=== PATIENT | male | born 1955 | race Two or more races ===

== ENCOUNTER 2022-12-04 09:18 | Outpatient (CLI) | payer MEDICARE, MEDICAID ==
[2022-12-04 09:54] LABS: BASOPHILS % (AUTO) 0.5 % (0-1); EOSINOPHILS # (AUTO) 0.5 X10'3 (0-0.9); EOSINOPHILS % (AUTO) 5.7 % (0-6); HEMATOCRIT 44.9 % (42.0-52.0); LYMPHOCYTES # (AUTO) 1.6 X10'3 (1.1-4.8); MEAN CORPUSCULAR HEMOGLOBIN 31.1 PG (27.0-31.0); MEAN CORPUSCULAR HGB CONC 33.4 g/dL (33.0-36.5); MEAN CORPUSCULAR VOLUME 93.3 FL (78-98); MEAN PLATELET VOLUME 7.8 FL (7.4-10.4); MONOCYTES # (AUTO) 1.1 X10'3 (0-0.9); MONOCYTES % (AUTO) 12.5 % (2-12); NEUTROPHILS # (AUTO) 5.3 X10'3 (1.8-7.7); NEUTROPHILS % (AUTO) 62.3 % (42-75); PLATELET COUNT 261 X10'3 (140-440); RED BLOOD COUNT 4.82 X10'6 (4.70-6.10); RED CELL DISTRIBUTION WIDTH 13.7 % (11.5-14.5); WHITE BLOOD COUNT 8.5 X10'3 (4.5-11.0)
[2022-12-04 10:03] LABS: APTT 29 SECONDS (22-32)
[2022-12-04 10:05] LABS: ALBUMIN 3.9 G/DL (3.4-5.0); ANION GAP 5 (8-16); BLOOD UREA NITROGEN 23 MG/DL (7-18); BUN/CREATININE RATIO 22.1 (10.0-20.0); CHLORIDE 104 MMOL/L (99-107); CHOL/HDL RATIO 1.9 (0.00-4.99); CHOLESTEROL 116 MG/DL (0-200); CREATININE 1.04 MG/DL (0.60-1.10); GLUCOSE 105 MG/DL (70-104); HDL CHOLESTEROL 60 MG/DL (35-60); LDL CHOLESTEROL 46 MG/DL (50-100); POTASSIUM 4.5 MMOL/L (3.5-5.1); SODIUM 140 MMOL/L (135-145); TOTAL CARBON DIOXIDE 31.4 MMOL/L (24-32); TRIGLYCERIDES 48 MG/DL (20-135); eGFR 71 ML/MIN
== END 2022-12-04 23:59 | disposition home or self-care (01) ==
LOC: LAB 09:18 → EDSTATUS 12-08 15:30
PROVIDERS: ATTEND Student in an Organized Health Care Education/Training Program
DX: Z01.812 Encounter for preprocedural laboratory examination (principal); I50.30 Unspecified diastolic (congestive) heart failure; I11.0 Hypertensive heart disease with heart failure; E78.5 Hyperlipidemia, unspecified
CPT/HCPCS: 36415; 80048; 80061; 85025; 85610; 85730

== ENCOUNTER 2023-02-09 10:51 | Day surgery (SDC) | payer MEDICARE, MEDICAID ==
[2023-02-05 08:28] LABS: BASOPHILS % (AUTO) 0.5 % (0-1); EOSINOPHILS # (AUTO) 0.2 X10'3 (0-0.9); EOSINOPHILS % (AUTO) 3.4 % (0-6); HEMOGLOBIN 15.1 g/dl (14.0-17.9); LYMPHOCYTES # (AUTO) 2.4 X10'3 (1.1-4.8); LYMPHOCYTES % (AUTO) 35.5 % (21-51); MEAN CORPUSCULAR HEMOGLOBIN 31.3 PG (27.0-31.0); MEAN CORPUSCULAR HGB CONC 33.6 g/dL (33.0-36.5); MEAN CORPUSCULAR VOLUME 93.2 FL (78-98); MEAN PLATELET VOLUME 8.1 FL (7.4-10.4); MONOCYTES # (AUTO) 0.7 X10'3 (0-0.9); MONOCYTES % (AUTO) 9.8 % (2-12); NEUTROPHILS # (AUTO) 3.5 X10'3 (1.8-7.7); NEUTROPHILS % (AUTO) 50.8 % (42-75); PLATELET COUNT 213 X10'3 (140-440); RED BLOOD COUNT 4.83 X10'6 (4.70-6.10); WHITE BLOOD COUNT 6.8 X10'3 (4.5-11.0)
[2023-02-05 08:34] LABS: ALBUMIN 3.9 G/DL (3.4-5.0); ANION GAP 6 (8-16); BLOOD UREA NITROGEN 22 MG/DL (7-18); BUN/CREATININE RATIO 20.8 (10.0-20.0); CHLORIDE 103 MMOL/L (99-107); CREATININE 1.06 MG/DL (0.60-1.10); GLUCOSE 126 MG/DL (70-104); POTASSIUM 4.6 MMOL/L (3.5-5.1); SODIUM 139 MMOL/L (135-145); TOTAL CARBON DIOXIDE 29.7 MMOL/L (24-32); eGFR 69 ML/MIN
[2023-02-05 08:37] LABS: APTT 27 SECONDS (22-32)
[2023-02-09] VITALS (7 sets, daily range): BP systolic 91–119; BP diastolic 56–64; PULSE 62–69; RESP 14–16; TEMP 97.4; O2SAT 93–96
[~2023-02-09] VITALS: Ht 182.9 cm; Wt 85.8 kg
[2023-02-09] MEDS ORDERED: LORazepam 0.5 MG tablet PO PRN (11:10)
[2023-02-09] MEDS ORDERED: normal saline 1,000 ML IV SCH (11:10)
[2023-02-09] MEDS ORDERED: diphenhydrAMINE 25mg capsule PO PRN (11:10)
[2023-02-09] MEDS ORDERED: DULA0.75 SQ (11:21)
[2023-02-09] MEDS ORDERED: HUM7525 SQ ×2 (11:21)
[2023-02-09] MEDS ORDERED: METF-438 PO (11:21)
[2023-02-09] MEDS ORDERED: ATOR-2 PO (11:21)
[2023-02-09] MEDS ORDERED: METO-384 PO (11:21)
[2023-02-09] MEDS ORDERED: SPIR25TA5 PO (11:21)
[2023-02-09] MEDS ORDERED: FLO0.4C PO (11:21)
[2023-02-09] MEDS ORDERED: SACU1TAB7 PO (11:21)
[2023-02-09] MEDS ORDERED: BENZ200C53 PO (11:21)
[2023-02-09] MEDS ORDERED: FINA5TAB11 PO (11:21)
[2023-02-09] MEDS ORDERED: FURO20TA4 PO (11:21)
[2023-02-09] MEDS ORDERED: EMPA25TA PO (11:21)
[2023-02-09] MEDS ORDERED: verapamil 2.5 mg/ml inj IV ONE (11:53)
[2023-02-09] MEDS ORDERED: midazolam 1 mg/ML 2ml injection ONE ×2 (11:53→13:17)
[2023-02-09] MEDS ORDERED: LIDOcaine 1% (10mg/ml) 2ml vial ONE (11:53)
[2023-02-09] MEDS ORDERED: nitroGLYCERIN-Tridil 50MG/D5W 250 ML IV ONE (11:53)
[2023-02-09] MEDS ORDERED: iohexol 350MG/ML 100ml bottle IV ONE (11:54)
[2023-02-09] MEDS ORDERED: heparin 1,000unit/ml 10ml vial 10 ML ONE (11:54)
[2023-02-09] MEDS ORDERED: fentaNYL/PF 50MCG/1 ML 2ML syringe ONE (11:54)
[2023-02-09] MEDS ORDERED: HYDROcodone/acetaminophen 10/325mg tab PO PRN (14:15)
[2023-02-09] MEDS ORDERED: HYDROcodone/acetaminophen 5mg/325mg tablet PO PRN (14:15)
[2023-02-09 14:40] LABS: ISTAT HGB ART 14.3 g/dl (14.0-17.9); ISTAT Hct ART 42 %PCV (42-52); ISTAT O2 SATURATION ARTERIAL 92 % (95-98); ISTAT SOURCE ART
[2023-02-09 14:43] LABS: ISTAT Hct MIX 45 %PCV (42-52); ISTAT O2 SATURATION MIX VENOUS 62 % (60-80); ISTAT SOURCE VEN
== END 2023-02-09 15:50 | disposition home or self-care (01) ==
LOC: SSTAY O 10:51
PROVIDERS: ATTEND Student in an Organized Health Care Education/Training Program
DX: I11.0 Hypertensive heart disease with heart failure (principal); I50.22 Chronic systolic (congestive) heart failure; I25.10 Atherosclerotic heart disease of native coronary artery without angina pectoris; E11.9 Type 2 diabetes mellitus without complications; E78.5 Hyperlipidemia, unspecified; I25.5 Ischemic cardiomyopathy; Z95.810 Presence of automatic (implantable) cardiac defibrillator; Z87.891 Personal history of nicotine dependence; Z79.899 Other long term (current) drug therapy; Z79.4 Long term (current) use of insulin; Z95.5 Presence of coronary angioplasty implant and graft; Z88.0 Allergy status to penicillin
CPT/HCPCS: 36415; 80048; 82803; 82948; 85014; 85025; 85610; 85730; 93005; 93460; 99152; A6258; J1644; J2250; J3010; J3490; J7030; Q0163; Q9967; 99153; C1751; C1769; C1894